=== PATIENT | male | born 1965 | race African-American/Black ===

== ENCOUNTER 2024-06-22 09:53 | Outpatient (REF) | payer MEDICAID, SELFPAY ==
--- NOTE | ~2024-06-22 | XR_ITS ---
EXAMINATION: XR LUMBOSACRAL SPINE CLINICAL INFORMATION: Acute on chronic low back pain. COMPARISON: None available. TECHNIQUE: Three views of the lumbosacral spine. FINDINGS: Mild to moderate disc space narrowing at L5-S1. Very mild thoracolumbar levocurvature. The vertebral bodies and posterior elements otherwise appear unremarkable. The disc spaces appear preserved. No evidence of spondylolysis or spondylolisthesis. The paraspinal soft tissues appear unremarkable. XR/XR lumbar spine 2-3V IMPRESSION: No acute finding. Electronically signed by: Delon Florence MD 06/28/2024 03:11 PM EDT
== END 2024-06-22 09:54 | disposition home or self-care (01) ==
LOC: HO.HHCX 09:53
PROVIDERS: Visit Provider Registered Nurse
DX: M54.50 Low back pain, unspecified (principal); G89.29 Other chronic pain
CPT/HCPCS: 72100

== ENCOUNTER 2024-08-07 09:18 | Outpatient (REF) | payer MEDICAID, SELFPAY ==
[2024-08-07 11:36] LABS: Estimated Average Glucose 103 mg/dL; Hemoglobin A1C 119.8056 umol/L; Hemoglobin A1c % 5.2 % (<6.0); Total Hemoglobin (HGBA1C) 3629.8307 umol/L
[2024-08-07 11:46] LABS: Alanine Aminotransferase 33 U/L (0-40); Albumin Level 3.9 g/dL (3.5-5.0); Alkaline Phosphatase 91 U/L (39-117); Anion Gap 12 (12-20); Aspartate Amino Transferase 41 U/L (5-37); Bilirubin Total 0.4 mg/dL (0.0-1.0); Blood Urea Nitrogen 10 mg/dL (9-16); Calcium 9.3 mg/dL (8.4-10.2); Carbon Dioxide 27 mmol/L (22-29); Chloride 103 mmol/L (96-108); Cholesterol 124 mg/dL (<200); Estimated Glomerular Filt Rate > 60; Glucose Random 72 mg/dL (60-115); HDL Cholesterol 29 mg/dL (>40); LDL Cholesterol Calculated 59 mg/dL (<100); Potassium 4.9 mmol/L (3.3-5.1); Sodium 137 mmol/L (135-145); Total Protein 7.6 g/dL (6.5-8.0); Triglycerides 181 mg/dL (<150)
[2024-08-07 12:09] LABS: HBc Num1 0.12 S/CO (0.00-0.79); HBsAGNum1 0.82 S/CO (0.00-0.99); HIV AB/AG Nonreactive (Nonreactive); HIV Num 1 0.05 S/CO (0.00-0.99); Hepatitis B Core Antibody Nonreactive (Nonreactive); Hepatitis B Surface Antigen Negative (Negative); ~HepC Num1 15.09 S/CO (0.00-0.79); ~Hepatitis C Antibody Reactive (Nonreactive)
[2024-08-11 12:43] LABS: RPR Rapid Plasma Reagin NON-REACTIVE (NON-REACTIVE)
[2024-08-18 12:13] LABS: HCV Log PCR 5.78 Log IU/mL (NOT DETECTED); HepC Viral Load 601000 IU/mL (NOT DETECTED)
== END 2024-08-07 09:19 | disposition home or self-care (01) ==
LOC: HO.HHCL 09:18
PROVIDERS: Visit Provider Registered Nurse
DX: F19.90 Other psychoactive substance use, unspecified, uncomplicated (principal); E66.09 Other obesity due to excess calories; Z68.34 Body mass index [BMI] 34.0-34.9, adult
CPT/HCPCS: 36415; 80053; 80061; 83036; 86592; 86704; 86803; 87340; 87389; 87522

== ENCOUNTER 2024-09-11 12:18 | Outpatient (REF) | payer MEDICAID, SELFPAY ==
[2024-09-11 13:18] LABS: Prothrombin Time 11.1 SEC (10.9-12.4)
[2024-09-11 13:31] LABS: Alanine Aminotransferase 41 U/L (0-40); Albumin Level 3.8 g/dL (3.5-5.0); Alkaline Phosphatase 92 U/L (39-117); Anion Gap 9 (12-20); Aspartate Amino Transferase 50 U/L (5-37); Bilirubin Total 0.3 mg/dL (0.0-1.0); Blood Urea Nitrogen 12 mg/dL (9-16); Calcium 8.6 mg/dL (8.4-10.2); Carbon Dioxide 28 mmol/L (22-29); Chloride 103 mmol/L (96-108); Estimated Glomerular Filt Rate > 60; Glucose Random 93 mg/dL (60-115); Potassium 4.4 mmol/L (3.3-5.1); Sodium 136 mmol/L (135-145); Total Protein 7.4 g/dL (6.5-8.0)
[2024-09-11 13:44] LABS: HBS Num1 79.01 mIU/mL (0-7.99); ~Hepatitis B Surface Antibody REACTIVE (Nonreactive)
[2024-09-18 15:43] LABS: FIB-ALT 29 U/L (9-46); FIB-Alpha-2-Macroglobulin 375 mg/dL (106-279); FIB-Apolipoprotein A1 136 mg/dL (94-176); FIB-GGT 72 U/L (3-85); FIB-Haptoglobin 96 mg/dL (43-212); FIB-Total Bilirubin 0.3 mg/dL (0.2-1.2); Liver Fibrosis Score 0.61; Liver Fibrosis Stage F3; Nec Inflam Act Grade A0-A1; Nec Inflam Act Score 0.21; Reference ID 5216125
== END 2024-09-11 12:19 | disposition home or self-care (01) ==
LOC: HO.HHCL 12:18
PROVIDERS: Visit Provider Registered Nurse
DX: F19.90 Other psychoactive substance use, unspecified, uncomplicated (principal); E66.09 Other obesity due to excess calories; Z68.34 Body mass index [BMI] 34.0-34.9, adult; B18.2 Chronic viral hepatitis C
CPT/HCPCS: 36415; 80053; 81596; 85610; 86706

== ENCOUNTER 2025-01-04 09:59 | Outpatient (REF) | payer MEDICAID, SELFPAY ==
--- NOTE | ~2025-01-04 | US_ITS ---
EXAMINATION: US ABDOMEN COMPLETE WITH LIVER ELASTOGRAPHY HISTORY: Hepatitis C F3 TECHNIQUE: Real-time grayscale ultrasound imaging of the abdomen was performed and images were reviewed. COMPARISON: There are no prior studies for comparison. FINDINGS: Liver: The right lobe of the liver measures 17.2 cm in size. The left lobe of the liver measures 10.8 cm in size. The liver demonstrates increased echotexture, consistent with steatosis. No focal mass or intrahepatic biliary ductal dilatation is identified. There is normal hepatopedal flow in the portal vein. Ultrasound elastography of the liver was performed with 10 separate measurements of the liver parenchyma with the patient in the supine position. Measurements were obtained approximately 2 cm below Kings's capsule and perpendicular to the capsule. Images are of satisfactory quality. The median shear wave velocity is 1.88 m/s. The interquartile range/median (IQR/median) is 0.03. Gallbladder and biliary tree: The gallbladder is unremarkable, without evidence of calculi, wall thickening, or pericholecystic fluid. There is no sonographic Patel sign. The common bile duct is normal in caliber measuring 4 mm. Kidneys: The right kidney measures 10.6 cm in length. The left kidney measures 10.7 cm in length. The kidneys are unremarkable, without evidence of masses, hydronephrosis, or calculi. Pancreas: The pancreas is obscured by bowel gas. Spleen: The spleen is normal in size and contour, measuring 10.3 cm in length. Abdominal aorta and inferior vena cava: The visualized portions of the abdominal aorta and inferior vena cava are normal in caliber. There is no free fluid in the abdomen. US/US abdomen comp w elastography IMPRESSION: Hepatomegaly and hepatic steatosis. The median shear wave velocity in the liver is 1.88 m/s, corresponding to a median liver stiffness of 10.75 kPa. The IQR/median value is 0.03. This is indicative of a quality data set. Findings are indicative of a high elastography value suggestive of compensated advanced chronic liver disease. REFERENCE: Society of Radiologists in Ultrasound Liver Stiffness Thresholds (2019): LIVER STIFFNESS THRESHOLDS: *Shear wave velocity less than 1.3 m/s (Liver Stiffness equal or less than 5 kPa): High probability of being normal. *Shear wave velocity less than 1.7 m/s (Liver Stiffness less than 9 kPa): In the absence of other known clinical signs, rules out compensated advanced chronic liver disease. *Shear wave velocity between 1.7-2.1 m/s (Liver Stiffness 9-13 kPa): Suggestive of compensated advanced chronic liver disease but need further test for confirmation. *Shear wave velocity between 2.1-2.4 m/s (Liver Stiffness 13-17 kPa): Rules in compensated advanced chronic liver disease. *Shear wave velocity greater than 2.4 m/s (Liver Stiffness over 17 kPa): Suggestive of clinically significant portal hypertension. QUALITY OF DATA SET: *IQR/Median value equal or less than 0.15 implies a quality data set. *IQR/Median value over 0.15 implies a poor quality data set. SIGNIFICANT CHANGE FROM PRIOR EXAM: Significant change if liver stiffness measurement is 10% or greater from prior exam. OTHER CONSIDERATIONS: The stage of liver fibrosis may be overestimated in the setting of acute hepatitis, liver inflammation, elevated liver function tests, hepatic vascular congestion, obstructive cholestasis, non-fasting state, and infiltrative diseases such as amyloidosis and lymphoma. In some patients with NAFLD, the liver stiffness thresholds for compensated advanced chronic liver disease may be lower. In causes other than viral hepatitis and NAFLD, liver stiffness thresholds are not well established. Electronically signed by: David Tony MD 01/05/2025 08:11 AM EDT
== END 2025-01-04 10:00 | disposition home or self-care (01) ==
LOC: HO.US 09:59
PROVIDERS: PCP Internal Medicine; Visit Provider Registered Nurse
DX: B18.2 Chronic viral hepatitis C (principal)
CPT/HCPCS: 76700; 76981

== ENCOUNTER → 2025-01-04 10:02 | Outpatient (BNV) | payer MEDICAID, SELFPAY | PROVIDERS: PCP Internal Medicine; Visit Provider Radiology Diagnostic Radiology | DX: B18.2 Chronic viral hepatitis C (principal) | CPT/HCPCS: 76700; 76981 ==

== ENCOUNTER 2025-01-18 10:20 | Outpatient (REF) | payer MEDICAID, SELFPAY ==
[2025-01-22 10:59] LABS: Hepatitis C Genotype 1b
== END 2025-01-18 10:21 | disposition home or self-care (01) ==
LOC: HO.HHCL 10:20
PROVIDERS: Visit Provider Registered Nurse
DX: B18.2 Chronic viral hepatitis C (principal)
CPT/HCPCS: 36415; 87902

== ENCOUNTER 2025-01-21 09:08 | Outpatient (REF) | payer MEDICAID, SELFPAY ==
[2025-01-21 11:16] LABS: Hematocrit 44.1 % (42.0-52.0); Mean Corpuscular Volume 91.1 fL (80.0-98.0); Mean Platelet Volume 11.1 fL (9.4-12.4); Platelet Count 254 X10*3/uL (160-400); Red Blood Count 4.84 X10*6/uL (4.60-5.80); Red Cell Distribution Width 12.6 % (11.0-16.0); White Blood Count 22.4 X10*3/uL (4.8-10.8)
[2025-01-21 12:52] LABS: Atypical Lymph Absolute Manual 0.2 x10*3/uL; Atypical Lymphs Percent Manual 1 % (0-6); Band Neutrophils Percent 1 % (3-5); Eosinophils Absolute Manual 0.2 X10*3/uL (0.0-0.4); Eosinophils Percent Manual 1 % (0-4); Lymphocytes Absolute Manual 17.9 X10*3/uL (1.2-4.9); Lymphocytes Percent Manual 80 % (20-40); Monocytes Absolute Manual 1.6 X10*3/uL (0.1-1.2); Monocytes Percent Manual 7 % (2-11); Neutrophils Absolute Manual 2.5 X10*3/uL (2.0-8.3); Neutrophils Percent Manual 10 % (45-73)
[2025-01-21 12:54] LABS: Acanthocytes 1+ (0-2) /OIF; Giant Platelet PRESENT; Large Platelet PRESENT; Ovalocytes 1+ (5-14) /OIF; Platelet Estimate NORMAL (NORMAL); Platelet Morphology Comment NOTED; RBC Morphology NOTED
[2025-01-21 12:55] LABS: Burr Cells 3+ (>5) /OIF
== END 2025-01-21 09:09 | disposition home or self-care (01) ==
LOC: HO.HHCL 09:08
PROVIDERS: Visit Provider Registered Nurse
DX: B18.2 Chronic viral hepatitis C (principal)
CPT/HCPCS: 36415; 85007; 85025; 85027

== ENCOUNTER 2025-01-26 09:06 | Outpatient (REF) | payer MEDICAID, SELFPAY ==
[2025-01-26 11:32] LABS: Basophils Absolute Auto 0.1 X10*3/uL (0.0-0.2); Basophils Percent Auto 0.6 % (0-2); Eosinophils Absolute Auto 0.1 X10*3/uL (0.0-0.4); Eosinophils Percent Auto 0.4 % (0-4); Hematocrit 45.9 % (42.0-52.0); Hemoglobin 15.6 g/dl (14.0-18.0); Imm Gran Abs Auto 0.04 X10*3/uL (0.00-0.03); Imm Gran Pct Auto 0.2 % (0.0-0.4); Lymphocytes Percent Auto 78.8 % (20-40); MANUAL DIFF FLAG SCAN; Mean Corpuscular Volume 91.1 fL (80.0-98.0); Monocytes Percent Auto 4.5 % (2-11); Neutrophils Absolute Auto 3.4 x10*3/uL (2.0-8.3); Neutrophils Percent Auto 15.5 % (45-73); Platelet Count 275 X10*3/uL (160-400); Red Blood Count 5.04 X10*6/uL (4.60-5.80); Red Cell Distribution Width 12.6 % (11.0-16.0); SCAN SMEAR FLAG 1; White Blood Count 21.7 X10*3/uL (4.8-10.8)
[2025-01-26 11:33] LABS: Lymphocytes Absolute Auto 17.1 X10*3/uL (1.2-4.9)
[2025-01-26 12:05] LABS: SLIDE REVIEW VERIFIED
== END 2025-01-26 09:07 | disposition home or self-care (01) ==
LOC: HO.HHCL 09:06
PROVIDERS: Visit Provider Registered Nurse
DX: D72.828 Other elevated white blood cell count (principal)
CPT/HCPCS: 36415; 85025

== ENCOUNTER 2025-02-02 09:40 | Outpatient (REF) | payer MEDICAID, SELFPAY | END 2025-02-02 09:41 | disposition home or self-care (01) | LOC: HO.HHCL 09:40 | PROVIDERS: Visit Provider Registered Nurse | DX: Z13.89 Encounter for screening for other disorder (principal) ==

== ENCOUNTER 2025-03-26 12:38 | Outpatient (REF) | payer MEDICAID, SELFPAY | END 2025-03-26 12:39 | disposition home or self-care (01) | LOC: HO.HHCL 12:38 | PROVIDERS: Visit Provider Registered Nurse | DX: Z13.89 Encounter for screening for other disorder (principal) ==

== ENCOUNTER 2025-03-26 13:12 | Outpatient (REF) | payer MEDICAID, SELFPAY ==
--- NOTE | ~2025-03-26 | XR_ITS ---
EXAMINATION: XR CHEST 2 VIEWS HISTORY: 59 y.o male with significant smoking hx, chronic cough COMPARISON: There are no prior studies available for comparison. FINDINGS: PA and lateral views of the chest are submitted. There is mild interstitial prominence. No focal airspace opacities are identified. There is no pleural effusion, pneumothorax, or pulmonary vascular congestion. The heart is normal in size. The bones are intact. XR/XR chest 2V IMPRESSION: Mild interstitial prominence. Given the history of smoking, the patient may qualify for low-dose screen chest CT. Electronically signed by: David Tony MD 03/26/2025 02:03 PM EDT
--- OUTSIDE RECORDS SUMMARY | 2025-03-26 13:24 | XMS_ITS ---
Author Organization [employer] Address [address] [facility] 7t [place] [address] Care Team Providers Care Log Brander Name Role Phone Cristina Grubbs HYDRAULIC TECHNICIAN Primary Care Provider [phone] CM Complex Status:Enrolled (Active) Start date:02/01/2025 Enrollment date:02/23/2025 Enrollment reason:ADT Feed Overview PCP Ref- Enmanuel is a 59-year-old male with chronic HCV and substance use disorder. He is followed by the CRS team for HCV treatment but he needs a support making it to his other specialist appointments. Most importantly, I am very concerned about a possible lymphoma due to some abnormal blood work that he has had. He was referred to hematology and would benefit from care management support ensuring he makes it there. He also needs to complete PFTs which were previously ordered and should start lung cancer screening. He was referred to [facility] but says that he has never been contacted. He may need help rescheduling. Case Team Name Relationship Phone Les العلي RN(Responsible Staff) Registered Debora govea [phone] Continued Care and Services Coordination
== END 2025-03-26 13:13 | disposition home or self-care (01) ==
LOC: HO.HHCX 13:12
PROVIDERS: Visit Provider Registered Nurse
DX: R05.3 Chronic cough (principal)
CPT/HCPCS: 71046

== ENCOUNTER → 2025-03-26 13:14 | Outpatient (BNV) | payer MEDICAID, SELFPAY | PROVIDERS: Visit Provider Radiology Diagnostic Radiology | DX: R05.3 Chronic cough (principal) | CPT/HCPCS: 71046 ==

== ENCOUNTER 2025-06-30 15:07 | Outpatient (REF) | payer MEDICAID, SELFPAY ==
--- NOTE | 2025-06-30 15:12 | PFT_ITS ---
Flows: FEV1: 93 % of predicted at 2.80 L FVC: 87 % of predicted at 3.33 L FEV1/FVC: 84 % Bronchodilator response: Not performed Volumes: Patient was not able to comply with instructions for lung volumes and diffusion capacity testing. Impression: Normal spirometry. Patient was not able to comply with instructions for lung volumes or diffusion capacity testing MTDD
--- OUTSIDE RECORDS SUMMARY | 2025-06-30 17:13 | XMS_ITS ---
Author Organization [employer] Address [address] [facility] 7t [place] [address] Care Team Providers Care Funeral Service Licensee Name Role Phone Cristina Grubbs HEALTH SERVICES MANAGER Primary Care Provider [phone] CHW Complex Status:Enrolled (Active) Start date:02/03/2025 Enrollment date:03/02/2025 Enrollment reason:Referred by provider Overview PCP Ref- Enmanuel is a 59-year-old [...] help rescheduling. Case Team Name Relationship Phone Giuliana Lo(Responsible Staff) [phone] Continued Care and Services Coordination
--- OUTSIDE RECORDS SUMMARY | 2025-06-30 17:13 | XMS_ITS ---
Author Organization [employer] Address [address] [facility] 7t [place] [address] Care Team Providers Care Gas Brazer Name Role Phone Cristina Grubbs WIRE WINDER Primary Care Provider [phone] CM Complex Status:Enrolled (Active) Start date:02/01/2025 Enrollment [...] Les العلي RN(Responsible Staff) Registered Debora govea [phone] Continued Care and Services Coordination
--- OUTSIDE RECORDS SUMMARY | 2025-06-30 17:14 | XMS_ITS | Encounter Summary ---
Author Organization [employer] Address [address] [facility] [place] [address] Care Team Providers Care Pediatric Cns Name Role Phone Romie Cristina SOLAR INSTALLATION TECHNICIAN Primary Care Provider [phone] Encounter Details Date Type Department Care Team (Late st Contact Info) Description 04/08/2025 Telephone [facility] MED[facility]INE [address] [place] [address] Ashwin Stout, AditiD Social History Tobacco Use Types Packs/Day Years Used Date Smoking Tobacco: Every Day Cigarettes Smokeless Tobacco: Never Comments:Smokes 1 ppd x 30 y ears Alcohol Use Standard Drinks/Week Comments Never 0 (1 standard drink = 0.6 oz pur e alcohol) Depression Answer Date Recorded Patient Health Questionnaire-9 Score 9 03/29/2025 Patient Health Questionnaire-9 Score 9 03/29/2025 Last PHQ-9: Questionnaire Data Not on file 0 03/29/2025 Housing Stability Answer Date Recorded What is your housing situation today? I do not have housing (Staying with others, in a hotel, in a [place] [facility] [place], living outside on the street, on a beach, in a car, or in a park 03/24/[address] you li ve. Do you have problems with any of the following? None of the above 03/24/2025 Food Insecurity Answer Date Recorded Within the past 12 months, y ou worried that your food would run out before you got money to buy more: Sometimes True 2024 Within the past 12 months,th e food you bought just didn't last and you didn't have enough money to get more: Sometimes True 03/24/2025 Transportation Answer Date Recorded In the past 12 months, has l ack of transportation kept you from medical appts, meetings, work or from getting things needed for daily living? No 01/22/2025 Utilities Answer Date Recorded In the past 12 months, has t he electric, gas, oil or water company threatened to shut off services in your home? No 06/17/2024 Depression Answer Date Recorded Patient Health Questionnaire-2 Score 6 03/29/2025 Internet Access Answer Date Recorded Internet Access Q1 Yes 06/28/2024 Internet Access Q2 Not on file 06/28/2024 Sex and Gender Information Value Date Recorded Sex Assigned at Male 08/27/2022 10:17 AM EDT Legal Sex Male 10:17 AM EDT Gender Identity Male 08/27/2022 10:17 AM EDT Sexual Orientation Straight 08/27/2022 10 :17 AM EDT documented as of this encounter Miscellaneous Notes * Telephone Encounter - Ashwin Stout PharmD - 04/08/2025 1:19 PM EDT Patient picked up last refill of Epclusa on 04/08/2025. Patient Denied BELÉN Adherence was discussed with patient and they reported Patient reported strict adherence to medication, denies missing any doses Gwyn Warner documented in this encounter Plan of Treatment Upcoming Encounters Date Type Department Care Team (Late st Contact Info) Description 07/05/2025 11:15 AM EDT Office Visit [facility] MEDICINE [address] [place] [address] Cristina Grubbs FNP [address] [place] [address] 07/15/2025 10:00 AM EDT Office Visit [facility] ADULT DENTAL [address] [place] [address] Lalo Quintanilla, DMD [address] [place] [address] documented as of this encounter Visit Diagnoses Not on filedocumented in this encounter Additional Health Concerns Assessment Noted Time PHQ-9 Depression Total Score: 9 03/29/20 25 9:29 AM EDT documented as of this encounter Care Teams Pediatric Cns Relationship Specialty Start Date End Date Cristina Grubbs FNP [address] [place] [id number] PCP - General Family Medicine 06/17/24 documented as of this encounter
--- OUTSIDE RECORDS SUMMARY | 2025-06-30 17:14 | XMS_ITS | Encounter Summary ---
Author Organization [employer] Address [address] [facility] [address] [place] [address] Care Team Providers Care Case Advocate Name Role Phone Cristina Grubbs CHARTERED FINANCIAL ANALYST Primary Care Provider Reason for Visit * Reason Comments Med Refill Encounter Details Date Type Department Care Team ([facility] Contact Info) Description 07/21/2024 Refill [facility] [address] [place], [place] [phone] Ashwin Tapia MD [address] [place], [place] [phone] Social History Tobacco Use Types Packs/Day Years Used Date Smoking Tobacco: Every Day Cigarettes Smokeless Tobacco: Never Comments:Smokes 1 ppd x 30 y ears Alcohol Use Standard Drinks/Week Comments Never 0 (1 standard drink = 0.6 oz pur e alcohol) Depression Answer Date Recorded Patient Health Questionnaire-9 Score 0 06/17/2024 Patient Health Questionnaire-9 Score 0 06/17/2024 Last PHQ-9: Questionnaire Data Not on file 0 06/17/2024 Housing Stability Answer Date Recorded What is your housing situation today? I have rachel coles 06/17/[address] you li ve. Do you have problems with any of the following? None of the above 06/17/2024 Food Insecurity Answer Date Recorded Within the past 12 months, y ou worried that your food would run out before you got money to buy more: Never True 06/17/2024 Within the past 12 months,th e food you bought just didn't last and you didn't have enough money to get more: Never True Transportation Answer Date Recorded In the past 12 months, has l ack of transportation kept you from medical appts, meetings, work or from getting things needed for daily living? Yes, it has kept me from medical appointments or getting medications. 06/17/2024 Utilities Answer Date Recorded In the past 12 months, has t he electric, gas, oil or water company threatened to shut off services in your home? No 06/17/2024 Depression Answer Date Recorded Patient Health Questionnaire-2 Score 0 06/17/2024 Internet Access Answer Date Recorded Internet Access Q1 Yes 06/28/2024 Internet Access Q2 Not on file 06/28/2024 Sex and Gender Information Value Date Recorded Sex Assigned at Male 08/27/2022 10:17 AM EDT Legal Sex Male 10:17 AM EDT Gender Identity Male 08/27/2022 10:17 AM EDT Sexual Orientation Straight 08/27/2022 10 :17 AM EDT documented as of this encounter Plan of Treatment Upcoming Encounters Date Type Department Care Team (Late st Contact Info) Description 07/05/2025 11:15 AM EDT Office Visit [facility] [address] [place] [address] Cristina Grubbs FNP [address] [place] [address] 07/15/2025 10:00 AM EDT Office Visit [facility] ADULT DENTAL [address] [place] [address] Lalo Quintanilla, DMD [address] [place] [address] documented as of this encounter Visit Diagnoses Not on filedocumented in this encounter Additional Health Concerns Assessment Noted Time PHQ-9 Depression Total Score: 0 06/17/20 24 2:36 PM EDT documented as of this encounter Care Teams Case Advocate Relationship Specialty Start Date End Date Cristina Grubbs FNP [address] [place] [address] PCP - General Family Medicine 06/17/24 documented as of this encounter
--- OUTSIDE RECORDS SUMMARY | 2025-06-30 17:14 | XMS_ITS | Encounter Summary ---
Author Organization [employer] Address [address] [facility] 7t [place] [address] Care Team Providers Care Film Numberer Name Role Phone Romie [facility] Primary Care Provider [phone] Reason for Visit * Reason Comments Med Refill Encounter Details Date Type Department Care Team ([facility] Contact Info) Description 05/23/2025 Refill [facility] [address] [place], [place] [phone] [facility] [address] [place], [place] [phone] Social History Tobacco Use Types Packs/Day Years [...] with others, in a hotel, in a senior living, living outside on the street, on a [...] Description 07/05/2025 11:15 AM EDT Office Visit [facility] MEDICINE [address] [place] [address] Cristina Grubbs FNP [address] [place] [address] 07/15/2025 10:00 AM EDT Office Visit [facility] ADULT DENTAL [address] [place] [address] Lalo Quintanilla, DMD [address] [place] [address] documented as of this encounter Visit Diagnoses Not on filedocumented in this encounter Additional Health Concerns Assessment Noted Time PHQ-9 Depression Total Score: 9 03/29/20 25 9:29 AM EDT documented as of this encounter Care Teams Film Numberer Relationship Specialty Start Date End Date Cristina Grubbs FNP [address] [place] [address] PCP - General Family Medicine 06/17/24 documented as of this encounter
--- OUTSIDE RECORDS SUMMARY | 2025-06-30 17:14 | XMS_ITS | Encounter Summary ---
Author Organization [employer] Address [address] [facility] 7t [place] [address] Care Team Providers Care Screen Printing Supervisor Name Role Phone Cristina Grubbs [facility] Primary Care Provider [phone] Reason for Visit * Reason Comments Med Refill Encounter Details Date Type Department Care Team (Late st Contact Info) Description 04/11/2024 Refill [facility] [address] [place] [address] Ashwin Tapia MD [address] [place] [address] Social History Tobacco Use Types Packs/Day Years Used Date Smoking Tobacco: Every Day Cigarettes Smokeless Tobacco: Never Comments:Smokes 1 ppd x 30 y ears Alcohol Use Standard Drinks/Week Comments Never 0 (1 standard drink = 0.6 oz pur e alcohol) Sex and Gender Information Value Date Recorded Sex Assigned at Male 08/27/2022 10:17 AM EDT Legal Sex Male 10:17 AM EDT Gender Identity Male 08/27/2022 10:17 AM EDT Sexual Orientation Straight 08/27/2022 10 :17 AM EDT documented as of this encounter Plan of Treatment Upcoming Encounters Date Type Department Care Team (Late st Contact Info) Description 07/05/2025 11:15 AM EDT Office Visit [facility] [address] [place] [address] [facility]Cristina [facility] [address] [place] [address] 07/15/2025 10:00 AM EDT Office Visit [facility] ADULT DENTAL [address] [place] [address] Lalo Quintanilla DMD [address] [place] [address] documented as of this encounter Visit Diagnoses Not on filedocumented in this encounter Care Teams Screen Printing Supervisor Relationship Specialty Start Date End Date Cristina Grubbs FNP [address] [place] [address] PCP - General Family Medicine 06/17/24 documented as of this encounter
--- OUTSIDE RECORDS SUMMARY | 2025-06-30 17:14 | XMS_ITS | Encounter Summary ---
Author Organization [employer] Address [address] [facility] [address] [place] [address] Care Team Providers Care Personal Care Service Provider Name Role Phone Romie Cristina RN ACLS Primary Care Provider [phone] Encounter Details Date Type Department Care Team (Late st Contact Info) Description 02/09/2025 Telephone [facility] MEDICINE [address] [place] [address] Ashwin Stout, AditiD Social History Tobacco Use Types Packs/Day Years Used Date Smoking Tobacco: Every Day Cigarettes Smokeless Tobacco: Never Comments:Smokes 1 ppd x 30 y ears Alcohol Use Standard Drinks/Week Comments Never 0 (1 standard drink = 0.6 oz pur e alcohol) Depression Answer Date Recorded Patient Health Questionnaire-9 Score 8 02/01/2025 Patient Health Questionnaire-9 Score 8 02/01/2025 Last PHQ-9: Questionnaire Data Not on file 0 02/01/2025 Housing Stability Answer Date Recorded What is [...] Answer Date Recorded Patient Health Questionnaire-2 Score 2 02/01/2025 Internet Access Answer Date Recorded Internet Access [...] Telephone Encounter - Ashwin Stout PharmD - 02/09/2025 12:43 PM EDT Patient picked up first refill of Epclusa on 02/09/2025. Possible side effects were explained to the patient and caregiver. Discussed the importance of adherence and storage of the medication. Let patient know this regimen is curative if take correctly. Advised on taking omeprazole 4 hours apart from medication. Gwyn Warner documented in this encounter Plan of Treatment Upcoming Encounters Date Type Department Care Team (Late st Contact Info) Description 07/05/2025 11:15 AM EDT Office Visit [facility] MED[facility] [address] [place] [address] Cristina Grubbs FNP [address] [place] [address] 07/15/2025 10:00 AM EDT Office Visit [facility] ADULT DENTAL [address] [place] [address] Lalo Quintanilla, DMD [address] [place] [address] documented as of this encounter Visit Diagnoses Not on filedocumented in this encounter Additional Health Concerns Assessment Noted Time PHQ-9 Depression Total Score: 8 02/02/20 25 10:31 AM EDT documented as of this encounter Care Teams Personal Care Service Provider Relationship Specialty Start Date End Date Cristina Grubbs FNP [address] [place] [address] PCP - General Family Medicine 06/17/24 documented as of this encounter
--- OUTSIDE RECORDS SUMMARY | 2025-06-30 17:14 | XMS_ITS | Encounter Summary ---
Author Organization [employer] Address [address] [facility] 7t [place] [address] Care Team Providers Care Sales Representative Jewelry Name Role Phone Cristina Grubbs [facility] Primary Care Provider [phone] Reason for Visit * Reason Comments Med Refill Encounter Details Date Type Department Care Team (Late st Contact Info) Description 05/29/2024 Refill [facility] [address] [place], [place] [phone] Ashwin Tapia MD [address] [place] [address] Social History Tobacco Use Types Packs/Day Years [...] Description 07/05/2025 11:15 AM EDT Office Visit [facility] MEDICINE [address] [place] [address] RomieCristina [facility] [address] [place] [address] 07/15/2025 10:00 AM EDT Office Visit [facility] ADULT DENTAL [address] [place] [address] Lalo Quintanilla DMD [address] [place] [address] documented as of this encounter Visit Diagnoses Not on filedocumented in this encounter Care Teams Sales Representative Jewelry Relationship Specialty Start Date End Date Cristina Grubbs FNP [address] [place] [address] PCP - General Family Medicine 06/17/24 documented as of this encounter
--- OUTSIDE RECORDS SUMMARY | 2025-06-30 17:14 | XMS_ITS | Encounter Summary ---
Author Organization [employer] Address [address] [facility] [address]t [place] [address] Care Team Providers Care Crossband Layer Name Role Phone [place] [facility] Primary Care Provider Reason for Visit * Reason Comments Pre-visit Planning SDOH unable to reach LVM Encounter Details Date Type Department Care Team ([facility] Contact Info) Description 06/25/2025 Patient Outreach [facility] [address] [place], [place] [phone] [facility] [address] [place] [address] Pre-visit Planning (SDOH unable to reach LVM) Social History Tobacco Use Types Packs/Day Years [...] with others, in a hotel, in a correction, living outside on the street, on a [...] AM EDT documented as of this encounter Progress Notes * Nikole Ashraf - 06/25/2025 1:43 PM EDT JACQUELINE Blackwell placed outbound call to patient to complete pre-visit planning. No answer at this time. Patient name and were not confirmed. CC left voicemail requesting return call. Direct contactinformation provided. documented in this encounter Plan of Treatment Upcoming Encounters Date Type Department Care Team (Late st Contact Info) Description 07/05/2025 11:15 AM EDT Office Visit [facility] MEDICINE [address] [place] [address] [place], Cristina, JUNIOR ART DIRECTOR [address] [place] [address] 07/15/2025 10:00 AM EDT Office Visit [facility] ADULT DENTAL [address] [place] [address] Lalo Quintanilla, DMD [address] [place] [address] documented as of this encounter Visit Diagnoses Not on filedocumented in this encounter Additional Health Concerns Assessment Noted Time PHQ-9 Depression Total Score: 9 03/29/20 25 9:29 AM EDT documented as of this encounter Care Teams Crossband Layer Relationship Specialty Start Date End Date Cristina Grubbs FNP [address] [place] [address] PCP - General Family Medicine 06/17/24 documented as of this encounter
--- OUTSIDE RECORDS SUMMARY | 2025-06-30 17:14 | XMS_ITS | Clinical Summary ---
Author Organization [employer] Address [address] [facility] 7t [place] [address] Care Team Providers Care Advertising Agent Name Role Phone Cristina Grubbs MUD BOSS Primary Care Provider [phone] Allergies No known active allergies Medications * This document contains information received from the source organization and may not represent a complete record from that organization. methadone (Dolophine) 10 MG/5ML solution Take 135 mg by mouth. Active ibuprofen 400 MG tablet Take 1 tablet (400 mg) by mouth every 6 (six) hours if needed for moderate pain or fever for up to 30 doses. 30 tablet 3 Active Spacer/Aero-Hold ing Chambers (OptiChamber Silvia) misc 1 each every 4 (four) hours if needed (asthma). 1 each 2 3 Active Emollient (CeraVe Moisturizing) cream APPLY TOPICALLY TO THE AFFECTED AREA(S) TWICE DAILY IN THE MORNING AND AT BEDTIME NEEDED FOR DRY SKIN 453 g 2 4 Active Symbicort 160-4.5 MCG/ACT inhaler INHALE 2 PUFFS BY MOUTH TWICE DAILY IN THE MORNING AND AT BEDTIME, DO NOT SWALLOW 10.2 g 3 4 Active QUEtiapine (SEROquel) 50 MG tabletIndication s:Mixed anxiety and depressive disorder Take 3 tablets (150 mg) by mouth at bedtime. 90 tablet 11 5 10/28/19 26 Active triamcinolone (Kenalog) 0.1 % creamIndications :Xerosis of skin MIX WITH cerave AND APPLY TOPICALLY TO AFFECTED AREA(S) AFTER SHOWER DIRECTED 80 g 2 5 Active montelukast (Singulair) 10 MG tablet Take 1 tablet by mouth at bedtime. Active tiotropium (Spiriva HandiHaler) 18 MCG inhalation capsuleIndicatio ns:Chronic obstructive pulmonary disease, unspecified COPD type (CMS/HCC) Place 1 capsule (18 mcg) into inhaler and inhale in the morning. 30 capsule 11 5 02/02/20 26 Active Ventolin HFA 108 (90 Base) MCG/ACT inhaler INHALE 2 PUFFS BY MOUTH EVERY 4 HOURS NEEDED FOR WHEEZING OR SHORTNESS OF BREATH 18 g 3 5 Active omeprazole (PriLOSEC) [address] capsule TAKE 1 CAPSULE BY MOUTH EVERY MORNING BEFORE BREAKFAST DO NOT BREAK, CRUSH, DISSOLVE OR CHEW 90 capsule 3 5 Active Acetaminophen Extra Strength 500 MG tabletIndication s:Chronic obstructive pulmonary disease, unspecified COPD type (CMS/HCC) TAKE 2 TABLETS BY MOUTH EVERY 6 HOURS NEEDED FOR MODERATE PAIN OR FOR FEVER 30 tablet 5 Active Multiple Vitamin (multivitamin) tabletIndication s:Chronic obstructive pulmonary disease, unspecified COPD type (CMS/HCC) Take 1 tablet by mouth Once per day. 90 tablet 3 5 Active lidocaine (Lidoderm) 5 % patchIndications :Chronic bilateral low back pain, unspecified whether sciatica present Apply 1 patch topically Once per day. Remove & discard patch within 12 hours 30 patch 11 4 06/17/20 25 Active Problems Problem Noted Date Diagnosed Date Chalazion of right lower eyelid 11/20/2024 Adjustment disorder with mixed anxiety and depre ssed mood 11/02/2024 Major depression with psychotic features 025 Assessment & Plan (11/03/2024 11:58 AM EST): During IBH Consult Enmanuel presenting with depressed mood, Tearful, crying spells , hopelessness, irritable mood, loss of interests/pleasure , sense of isolation/loneliness , isolating, changes in sleep difficulty falling asleep and difficulty staying asleep , psychomotor retardation, fatigue/loss of energy, worthlessness, inappropriate/excessive guilt , difficulty concentrating, indecisiveness and Decreased need for sleep and Other: visual an auditory hallucinations (name calling/no commanding voice); for a period of 18+ mo, for most or all symptoms in the context of chronic mental health untreated. Enmanuel has been experiencing symptoms described above for a while now. Cultural barriers and traditional stereotypes have been a barriers to seek out for therapy as the pt has strong heritage. Pt is currently doing the methadone program with [facility] in [place]. Reports having positive support from his family. clinician engaged patient with active/reflective listening. Reviewed and assessed for risk, current stressors and protective factors using open-ended questions. Pt requested be connected with services in the [facility]. Recurrent major depressive disorder, in partial remission 06/17/2024 Tobacco dependence 07/23/2023 Chronic bilateral low back pain without sciatica 07/23/2023 Opioid dependence, uncomplicated 07/23/2023 Rash 07/23/2023 Mild persistent asthma without complication 06/29 Assessment & Plan (11/02/2024 11:49 AM EST): Encouraged smoking cessation, discussed treatment methods, pt not interested in quitting at this time. Will re fax referrals for PFTs as well as LDLCT F/u in 3 months to review test results and reassess asthma tx. Cocaine abuse in remission 07/23/2023 H/O: depression 07/23/2023 H/O anxiety disorder 07/23/2023 Generalized anxiety disorder 08/05/2017 Mixed anxiety and depressive disorder 08/19/2012 Assessment & Plan (11/02/2024 12:05 PM EST): Will increase seroquel to 150 mg nightly in office consult completed today to establish therapy and psychopharm services, d/t time constraints visit unable to be completed, however resources were given to the patient and patient plans to f/u with [facility] to establish care. Normocytic anemia 08/19/2012 Smoker 08/19/2012 Assessment & Plan (11/02/2024 11:50 AM EST): Encouraged to quit, not interested at this time Asthma 06/19/2012 Hepatitis C 06/19/2012 Assessment & Plan (11/02/2024 11:51 AM EST): Reminded pt to complete liver ultrasound scheduled this month Pt plans to schedule f/u with Hep C clinic once ultrasound is completed to go over results and discuss tx Mantoux: positive 06/19/2012 Polysubstance abuse 06/19/2012 Resolved Problems Problem Noted Date Diagnosed Date Resolved Date Hordeolum externum of right lower eyelid 07/24/2024 11/20/2024 Assessment & Plan (07/24/2024 7:44 PM EDT): Anticipatory guidance reviewed, apply warm compresses, if does not resolve in 1- 2 weeks will refer to opthomalogy Reviewed s/s of cellulitis Recurrent major depressive disorder 06/17/2024 06/17/2024 Encounters Date Type Department Care Team Description 06/25/2025 Patient Outreach [facility] [address] [place], [place] [phone] Cristina Grubbs FNP Pre-visit Planning (SDOH unable to reach [facility]) 06/18/2025 Patient Outreach [facility] [address] [place] [address] Cristina Grubbs FNP Care Coordination (C3 CM-W Giuliana Lo telephone call outreach) 06/17/2025 Patient Outreach [address] [address] Cristina Grubbs FNP Care Management (C3- F/U call # 2 (3rd attempt)/LV) 05/23/2025 Refill [facility] [address] [place], [place] [phone] Cristina Grubbs FNP 05/20/2025 Patient Outreach [address] [address] Cristina Grubbs FNP Care Management (C3- follow up call # 2) 05/19/[address] [address] Sindy Segura RN 05/14/[address] [address] Cristina Grubbs FNP telephone call 05/12/2025 Patient Outreach [address] [address] Cristina Grubbs FNP Care Coordination (C3 CM-CHW Giuliana Lo telephone call outreach) 04/28/[address] [phone] [facility] telephone call 04/22/2025 Patient Outreach [address] [phone] [facility] Care Coordination 04/22/2025 Patient Outreach [address] [phone] [facility] Care Management (C3CM- Follow up call # 2/LVM) 04/08/[address] [phone] Ashwin Stout, PharmD 04/05/2025 Patient Outreach [address] [phone] [facility] Care Coordination from Last 3 Months Immunizations Immunization Administration Dates Next Due Hep A, Adult 06/08/2019,11/17/2004,01/01/2004 Hep B, adult 08/08/2005,06/14/2005,01/29/2005 Influenza injectable quadriv alent IIV4 with preservative 08/05/2017 Influenza, seasonal, injecta ble, preservative free 08/03/2024 Pneumococcal Conjugate PCV 20 08/03/2024 Pneumococcal Polysaccharide PPSV23 01/22/2014 Td (adult), 5 Lf tetanus tox oid, preservative free, adsorbed 03/11/2008 Tdap 08/05/2017 Zoster, Recombinant 04/05/2025,02/01/2025 Family History Medical History Relation Name Comments Diabetes type II Sister Hypertension Sister Relation Name Status Comments Sister Social History Tobacco Use Types Packs/Day Years Used Date Smoking Tobacco: Every Day Cigarettes Smokeless Tobacco: Never Tobacco Cessation:Ready to Q uit: Not Asked; Counseling Given: Not Answered Comments:Smokes 1 ppd x 30 years Alcohol Use Standard Drinks/Week Comments Never 0 [...] with others, in a hotel, in a skilled nursing, living outside on the street, on a [...] Orientation Straight 08/27/2022 10 :17 AM EDT Last Filed Vital Signs Vital Sign Reading Time Taken Comments Blood Pressure 112/82 03/29/2025 9:23 AM EDT Pulse 60 03/29/2025 9:23 AM EDT Temperature 36.8 C (98.3 F) 03/29/2025 9:23 AM EDT Respiratory Rate 20 03/29/2025 9:23 AM EDT Oxygen Saturation 98% 02/01/2025 10:30 AM EDT Inhaled Oxygen Concentration - - Weight 83.5 kg (184 lb) 03/29/2025 9:23 AM EDT Height 162.6 cm (5' 4 ) 03/29/2025 9:23 AM EDT Body Mass Index 31.58 03/29/2025 9:23 AM EDT Plan of Treatment Upcoming Encounters Date Type Department Care Team (Late st Contact Info) Description 07/05/2025 11:15 AM EDT Office Visit [facility] MEDICINE [address] [place], [place] [phone] Cristina Grubbs MUD BOSS [address] [place] [address] 07/15/2025 10:00 AM EDT Office Visit [facility] ADULT DENTAL [address] [place], [place] [phone] Lalo Quintanilla, DMD [address] [place], [place] [phone] Health Maintenance Due Date Last Done Comments CT Colonography 1967 Colonoscopy 1967 Colorectal Cancer Screening 1967 Dental Prophylaxis 1967 Dental X-Ray: Bitewings 1967 FIT DNA/Cologuard 1967 FIT 1967 FOBT 1967 Sigmoidoscopy 1967 COVID-19 Vaccine (3 - 2023-2 5 season) 2024 09/01/2021, 02/03/2021 Dental Oral Exam 11/29/2024 05/28/2024 Influenza Vaccine (#1) 2025 , 08/05/2017 Depression Monitoring 09/28/2025 03/29/2025 , 03/29/2025 SDOH Screening 03/24/2026 03/24/2025 Alcohol/Substance Use Screening 03/29/2026 03/29/2025 Disability Screening 03/29/2026 03/29/2025 Tobacco Screening 04/02/2026 04/02/2025 Dental X-Ray: Full Mouth 05/29/2027 05/28/2024 DTaP/Tdap/Td Vaccines (2 - T d or Tdap) 08/05/2027 08/05/2017, 03/11/2008 Lipid Panel 08/07/2029 08/07/2024 RSV Patients and Patients Aged 60 years or older (1 - 1-dose 75+ series) 2042 Hepatitis B Vaccines Completed 08/08/2005, 06/14/2005, 01/29/2005 Hepatitis A Vaccines Completed 06/08/2019, 11/17/2004, 01/01/2004 Pneumococcal Vaccine: 50+ Years Completed 08/03/2024, 01/22/2014 HIV Screening Completed 08/07/2024 Zoster Vaccines Completed 04/05/2025, 02/01/2025 HIB Vaccines Aged Out No longer eligi ble based on patient's age to complete this topic HPV Vaccines Aged Out No longer eligi ble based on patient's age to complete this topic IPV Vaccines Aged Out No longer eligi ble based on patient's age to complete this topic Meningococcal B Vaccine Aged Out No l onger eligible based on patient's age to complete this topic Meningococcal Vaccine Aged Out No tacho josh eligible based on patient's age to complete this topic RSV under 20 months Aged Out No longe r eligible based on patient's age to complete this topic Rotavirus Vaccines Aged Out No longer eligible based on patient's age to complete this topic Procedures Procedure Name Priority Date/Time Associated Diagnosis Comments HIV 1/2 ANTIGEN/ANTIBODY, FOURTH GENERATION W/RFL Routine 08/07/2024 9:20 AM EDT Substance use LIPID PANEL, STANDARD Routine 08/07/2024 9:20 AM EDT Class 1 obesity due to excess calories with serious comorbidity and body mass index (BMI) of 34.0 to 34.9 in adult PANORAMIC RADIOGRAPHIC IMAGE Routine 05/28/2024 10:30 AM EDT PERIODIC ORAL EVALUATION - ESTABLISHED PATIENT Routine 05/28/2024 10:30 AM EDT from Last 3 Months or Most Recently Relevant to Health Maintenance Results * HIV-1/2 Antigen and Antibodies, Fourth Generation, with Reflexes (08/07/2024 9:20 AM EDT) HIV AB/AG Nonreactive Nonreactive [facility] Comment:HIV-1 p24 Ag and/or HIV-1/HIV-2 Ab not detected.A test result that is nonreactive does not exclude thepossibility of exposure to or infection with HIV-1 and/orHIV-2. Nonreactive results in this assay for individualswith prior exposure to HIV-1 and/or HIV-2 may be due toantigen and antibody levels that are below the limit ofdetection of this assay.The [employer] HIV Ag/Ab Combo assay result andsupplemental assay results should be interpreted inconjunction with the patient's clinical presentation,history and other laboratory results. If the results areinconsistent with clinical evidence, additional testing issuggested to confirm the result. Blood Venous blood specimen / Unknown 08/07/2024 9:20 AM EDT 08/07/2024 11:17 AM EDT [facility] LAB BLOOD ORDERABLES Final Re sult [facility] [address] [place] [phone] * (ABNORMAL) Lipid Panel, Standard (08/07/2024 9:20 AM EDT) Triglycerides 181(H) <150 mg/dL [facility] Comment:Desirable Triglyceri de: less than 150 mg/dLBorderline High Triglyceride 150-199 mg/dLHigh Triglyceride: 200-499 mg/dLVery High Triglyceride: greater than or equal to 5OO mg/dL Cholesterol 124 <200 mg/dL [facility] Comment:Desirable Cholestero l: less than 200 mg/dLBorderline High Cholesterol: 200-239 mg/dLHigh Cholesterol: greater than 239 mg/dL LDL Cholesterol Calculated 59 <100 mg/dL [facility] Comment:Desirable LDL: less than 100 mg/dLNear Optimal/Above Optimal LDL: 110- 129 mg/dLBorderline High LDL: 130-159 mg/dLHigh LDL: 160-189 mg/dLVery High LDL: greater than or equal to 190 mg/dL HDL Cholesterol 29(L) >40 mg/dL [facility] Comment:Desirable HDL: great er than 40 mg/dL Note: This HDL assay may give artificially low results in patients with liver disease. Blood Venous blood specimen / Unknown 08/07/2024 9:20 AM EDT 08/07/2024 11:17 AM EDT [facility] LAB BLOOD ORDERABLES Final Re sult [facility] [address] [place] [phone] [phone] from Last 3 Months or Most Recently Relevant to Health Maintenance Insurance [place] [facility] MEDICAID STAND ADULT Care Teams Advertising Agent Relationship Specialty Start Date End Date Cristina Grubbs FNP [address] [place] [phone] PCP - General Family Medicine 06/17/24
== END 2025-06-30 15:08 | disposition home or self-care (01) ==
LOC: HO.RESP 15:07
PROVIDERS: PCP Registered Nurse; Visit Provider Registered Nurse
DX: J44.9 Chronic obstructive pulmonary disease, unspecified (principal); F17.200 Nicotine dependence, unspecified, uncomplicated; R05.3 Chronic cough
CPT/HCPCS: 94010

== ENCOUNTER → 2025-06-30 15:12 | Outpatient (BNV) | payer MEDICAID, SELFPAY | PROVIDERS: PCP Registered Nurse; Visit Provider Internal Medicine Pulmonary Disease | DX: F17.200 Nicotine dependence, unspecified, uncomplicated (principal); Z91.198 Patient's noncompliance with other medical treatment and regimen for other reason | CPT/HCPCS: 94060 ==

== ENCOUNTER 2025-07-09 12:12 | Outpatient (REF) | payer MEDICAID, SELFPAY ==
[2025-07-09 13:47] LABS: Hematocrit 42.9 % (42.0-52.0); Hemoglobin 14.8 g/dl (14.0-18.0); Imm Gran Abs Auto 0.03 X10*3/uL (0.00-0.03); Imm Gran Pct Auto 0.2 % (0.0-0.4); MANUAL DIFF FLAG SCAN; Mean Corpuscular HGB Conc 34.5 g/dl (31.0-36.0); Mean Corpuscular Hemoglobin 31.4 pg (27.0-33.0); Mean Corpuscular Volume 90.9 fL (80.0-98.0); NRBC Abs Auto 0.000 X10*3/uL (0.0-0.012); NRBC Pct Auto 0.0 /100WBC (0.0-0.2); Platelet Count 250 X10*3/uL (160-400); Red Blood Count 4.72 X10*6/uL (4.60-5.80); SCAN SMEAR FLAG 1; White Blood Count 16.8 X10*3/uL (4.8-10.8)
[2025-07-09 13:48] LABS: Lymphocytes Absolute Auto 12.9 X10*3/uL (1.2-4.9)
[2025-07-09 14:05] LABS: Alanine Aminotransferase 14 U/L (0-40); Albumin Level 4.3 g/dL (3.5-5.0); Alkaline Phosphatase 77 U/L (39-117); Anion Gap 13 (12-20); Aspartate Amino Transferase 27 U/L (5-37); Blood Urea Nitrogen 23 mg/dL (9-16); Calcium 9.4 mg/dL (8.4-10.2); Carbon Dioxide 26 mmol/L (22-29); Chloride 103 mmol/L (96-108); Estimated Glomerular Filt Rate > 60; Potassium 4.1 mmol/L (3.3-5.1); Sodium 138 mmol/L (135-145); Total Protein 7.6 g/dL (6.5-8.0)
[2025-07-11 15:23] LABS: HCV Log PCR <1.18 NOT DETECTED Log IU/mL (NOT DETECTED); HepC Viral Load <15 NOT DETECTED IU/mL (NOT DETECTED)
== END 2025-07-09 12:13 | disposition home or self-care (01) ==
LOC: HO.HHCL 12:12
PROVIDERS: PCP Registered Nurse; Visit Provider Registered Nurse
DX: D72.820 Lymphocytosis (symptomatic) (principal); B17.10 Acute hepatitis C without hepatic coma
CPT/HCPCS: 80053; 83615; 85025; 87522

== ENCOUNTER → 2025-08-02 14:20 | Outpatient (BNV) | payer MEDICAID, SELFPAY | PROVIDERS: PCP Registered Nurse; Referring Provider Registered Nurse; Visit Provider Internal Medicine | DX: D72.820 Lymphocytosis (symptomatic) (principal) | CPT/HCPCS: 99204 ==

== ENCOUNTER 2025-09-03 06:44 | Outpatient (REF) | payer MEDICAID, SELFPAY ==
--- NOTE | ~2025-09-03 | CT_ITS ---
EXAMINATION: CT CHEST WITHOUT IV CONTRAST INDICATION: shortness of breath, unintentional weight loss, hx of smoker COMPARISON: There are no prior studies available for comparison. TECHNIQUE: Helical CT scan of the chest was performed without intravenous contrast. Coronal and sagittal reformatted images were generated and reviewed. This CT exam was performed with one or more of the following dose reduction techniques: automated exposure control, adjustment of the mA and/or kV according to patient size, use of iterative reconstruction technique. DLP: 130 mGy-cm CHEST: THYROID: The thyroid is unremarkable. LUNGS: Increased peripheral reticular markings and groundglass attenuation suggestive of interstitial lung disease. Mild paraseptal emphysema. Central airways are clear. There are bilateral pulmonary nodules. 4 mm right peripheral or subpleural upper lobe nodule axial image 27, 5 mm peripheral or subpleural right upper lobe nodule adjacent to the anterior minor fissure axial image 52, 4 mm peripheral or subpleural right middle lobe nodule axial image 69, 3 mm left upper lobe nodule axial image 27, 3 mm peripheral or subpleural left upper lobe nodule axial image 50, 3 mm peripheral or subpleural left lower lobe nodule adjacent to the major fissure axial image 54, 4 mm peripheral or subpleural left lower lobe nodule adjacent to the fissure axial image 102 series 7 7 mm peripheral or subpleural left lower lobe nodule axial image 108, 4 mm peripheral or subpleural left lower lobe nodule axial image 119 and 3 mm peripheral or subpleural calcified left lower lobe nodule axial image 119 series 4. MEDIASTINUM: There are small mediastinal lymph nodes. No enlarged lymph nodes. HUONG: Evaluation of the hilar regions is limited by lack of intravenous contrast material. CARDIOVASCULATURE: The heart is normal in size. There is no pericardial effusion. The thoracic aorta is normal in caliber. DEGREE OF CORONARY CALCIFICATION: mild PLEURA: There is no pleural effusion. No pneumothorax. MAIN AIRWAYS: The mainstem bronchi and proximal branches are patent. AXILLA: Small bilateral axillary lymph nodes. No chest wall mass or enlarged axillary lymph nodes. BONES AND SOFT TISSUES: Unremarkable UPPER ABDOMEN: The visualized portions of the liver, spleen, and adrenals have an unremarkable unenhanced appearance. CT/CT chest wo IV con IMPRESSION: Mild peripheral interstitial lung disease and paraseptal emphysema. This may represent combined emphysema and interstitial lung disease/fibrosis related to smoking. Small pulmonary nodules, largest measuring 7 mm. Consider enrollment in lung cancer screening program if patient meets eligibility. Mild coronary artery calcification. Fleischner Criteria for pulmonary nodule follow-up SOLID NODULES: Low risk patient: <6mm: no follow-up 6-8mm: 6 month follow-up CT >8mm: PET/Biopsy/ 3 month follow-up CT High risk patient: <6mm: 12 month follow-up CT 6-8mm: 6 month follow-up CT >8mm: PET/Biopsy/ 3 month follow-up CT SUB-SOLID/GROUNDGLASS NODULES: All patients: > or = 6mm: 6 month follow-up CT *Please note that in patients in the following categories, the Fleischner criteria do not apply: Immunocompromised, lung cancer screening population, age below 35, and patients with known malignancy Electronically signed by: Lucinda Abebe MD 09/03/2025 08:24 AM VINI
--- OUTSIDE RECORDS SUMMARY | 2025-09-03 06:46 | XMS_ITS | Encounter Summary ---
Author Organization [employer] Address [address] [facility] 7t [place] [address] Care Team Providers Care Yard Cleaner Name Role Phone Cristina Grubbs [facility] Primary Care Provider [phone] Reason for Visit * Reason Comments Med Refill Encounter Details Date Type Department Care Team ([facility] st Contact Info) Description 04/11/2024 Refill [facility] [address] [place] [phone] Ashwin Tapia MD [address] [place] [address] Social History Tobacco Use Types Packs/Day Years [...] as of this encounter Plan of Treatment Not on file documented as of this encounter Visit Diagnoses Not on filedocumented in this encounter Care Teams Yard Cleaner Relationship Specialty Start Date End Date Cristina Grubbs FNP [address] [place] [phone] PCP - General Family Medicine 06/17/24 documented as of this encounter
--- OUTSIDE RECORDS SUMMARY | 2025-09-03 06:46 | XMS_ITS | Encounter Summary ---
Author Organization [employer] Address [address] [facility] [address]t [place] [address] Care Team Providers Care Processing Inspector Name Role Phone Cristina Grubbs [facility] Primary Care Provider [phone] Reason for Visit * Reason Comments Med Refill Encounter Details Date Type Department Care Team ([facility] st Contact Info) Description 05/29/2024 Refill [facility] [address] [place] [address] [phone] Ashwin Tapia MD [address] [place] [address] Social History Tobacco Use Types Packs/Day Years [...] on filedocumented in this encounter Care Teams Processing Inspector Relationship Specialty Start Date End Date Cristina Grubbs FNP [address] [place] [address] PCP - General Family Medicine 06/17/24 documented as of this encounter
--- OUTSIDE RECORDS SUMMARY | 2025-09-03 06:46 | XMS_ITS | Encounter Summary ---
Author Organization [email or web address] Address [address] [facility] [address] [place] [address] Care Team Providers Care Clay Transporter Name Role Phone Cristina Grubbs PRINCIPAL EMBEDDED SOFTWARE ENGINEER Primary Care Provider Reason for Visit * Reason Comments Med Refill Encounter Details Date Type Department Care Team ([facility] Contact Info) Description 07/21/2024 Refill [facility] [address] [place], [place] [phone] Ashwin Tapia MD [address] [place], [place] [phone] Social History Tobacco Use Types Packs/Day Years [...] documented as of this encounter Care Teams Clay Transporter Relationship Specialty Start Date End Date Cristina Grubbs FNP [address] [place] [address] PCP - General Family Medicine 06/17/24 documented as of this encounter
--- OUTSIDE RECORDS SUMMARY | 2025-09-03 06:47 | XMS_ITS | Encounter Summary ---
Author Organization [employer] Address [address] [facility] [address] [place] [address] Care Team Providers Care It Communications Manager Name Role Phone Romie Cristina SUR[employer]Y METHODOLOGIST Primary Care Provider [phone] Encounter Details Date Type Department Care Team (Late st Contact Info) Description 04/08/2025 Telephone [facility] MED[facility] [address] [place] [address] Ashwin Stout, AditiD Social History [...] documented in this encounter Plan of Treatment Not on file documented as of this encounter Visit Diagnoses Not on filedocumented in this encounter Additional Health Concerns Assessment Noted Time PHQ-9 Depression Total Score: 9 03/29/20 25 9:29 AM EDT documented as of this encounter Care Teams It Communications Manager Relationship Specialty Start Date End Date Cristina Grubbs FNP [address] [place] [phone] PCP - General Family Medicine 06/17/24 documented as of this encounter
--- OUTSIDE RECORDS SUMMARY | 2025-09-03 06:47 | XMS_ITS | Clinical Summary ---
Author Organization [employer] Address [address] [facility] 7t [place] [address] Care Team Providers Care Aluminum Can Collector Name Role Phone Cristina Grubbs TRAVEL REGISTERED NURSE ICU Primary Care Provider [phone] Allergies No known active allergies Medications * [...] 90 tablet 11 5 10/28/19 26 Active montelukast (Singulair) 10 MG tablet Take 1 tablet by mouth at bedtime. Active tiotropium (Spiriva HandiHaler) 18 MCG inhalation capsuleIndicatio ns:Chronic obstructive pulmonary disease, unspecified COPD type (CMS/HCC) ([facility]) Place 1 capsule (18 mcg) into inhaler [...] obstructive pulmonary disease, unspecified COPD type (CMS/HCC) ([facility]) TAKE 2 TABLETS BY MOUTH EVERY 6 HOURS NEEDED FOR MODERATE PAIN OR FOR FEVER 30 tablet 5 Active Multiple Vitamin (multivitamin) tabletIndication s:Chronic obstructive pulmonary disease, unspecified COPD type (CMS/HCC) ([facility]) Take 1 tablet by mouth Once per day. 90 tablet 3 5 Active triamcinolone (Kenalog) 0.1 % creamIndications :Xerosis of skin MIX WITH cerave AND APPLY TOPICALLY AFTER THE SHOWER 80 g 2 5 Active Active Problems Problem Noted Date Diagnosed Date Chalazion of right lower eyelid 11/20/2024 Adjustment disorder with mixed anxiety and depre ssed mood 11/02/2024 Major depression with psychotic features (CMS/HC C) 11/02/2024 Assessment & Plan (11/03/2024 11:58 AM EST): [...] is currently doing the methadone program with N in [place]. Reports having positive support from his family. clinician engaged patient with active/reflective listening. Reviewed and assessed for risk, current stressors and protective factors using open-ended questions. Pt requested be connected with services in the [facility]. Recurrent major depressive disorder, in partial remission 06/17/2024 Tobacco dependence 07/23/2023 Chronic bilateral low back pain without sciatica 07/23/2023 Opioid dependence, uncomplicated (CMS/HCC) 07/23 Rash 07/23/2023 Mild persistent asthma without complication 06/29 Assessment & Plan (11/02/2024 11:49 AM EST): Encouraged smoking cessation, discussed treatment methods, pt not interested in quitting at this time. Will re fax referrals for PFTs as well as LDLCT F/u in 3 months to review test results and reassess asthma tx. Cocaine abuse in remission (CMS/HCC) 07/23/2023 H/O: depression 07/23/2023 H/O anxiety disorder [...] patient and patient plans to f/u with [facility] to establish care. Normocytic anemia 08/19/2012 [...] Encounters Date Type Department Care Team Description 08/06/2025 10:00 AM EDT Office Visit [facility] [address] [place] [address] Lalo Quintanilla, DIPAK 08/04/[address] [address] Cristina Grubbs FNP No Show 08/03/[address] [address] Cristina Grubbs FNP chart prep 07/18/[address] [address] Cristina Grubbs FNP Xerosis of skin 07/16/2025 Patient Outreach [address] [address] Cristina Grubbs FNP Care Coordination (C3 CM-W Giuliana Lo telephone call outreach) 07/15/2025 10:00 AM EDT Office Visit [facility] [address] [place] [address] Lalo Quintanilla, DIPAK 07/15/2025 Patient Outreach [address] [address] Cristina Grubbs FNP Care Management (C3CM- follow up call/LVM) 07/14/2025 Orders Only [facility] [address] [place] [address] Cristina Grubbs FNP Lymphocytosis (Primary Dx) 07/12/2025 Results Follow-Up [facility] [address] [place] [address] Cristina Grubbs FNP Slide Review 07/09/2025 Orders Only [address] [address] Cristina Grubbs FNP 07/08/[address] [address] Cristina Grubbs FNP Care Coordination 07/05/2025 11:15 AM EDT Office Visit [address] [address] Cristina Grubbs FNP Lymphocytosis (Primary Dx); Acute hepatitis C virus infection without hepatic coma; Chronic obstructive pulmonary disease, unspecified COPD type (CMS/HCC); Shortness of breath; Unintentional weight loss 07/05/2025 Travel 07/02/[address] [address] Cristina Grubbs FNP Chart Prep 06/25/2025 Patient Outreach [facility] [address] [place], [place] [phone] Cristina Grubbs FNP Pre-visit Planning (SDOH unable to reach LVM) 06/18/2025 Patient Outreach [address] [address] Cristina Grubbs FNP Care Coordination (C3 CM-W Giuliana Lo telephone call outreach) 06/17/2025 Patient Outreach [address] [address] Cristina Grubbs FNP Care Management (C3CM- F/U call # 2 (3rd attempt)/[facility]) from Last 3 Months Immunizations Immunization Administration [...] Answer Date Recorded Patient Health Questionnaire-9 Score 10 07/05/2025 Patient Health Questionnaire-9 Score 10 07/05/2025 Last PHQ-9: Questionnaire Data Not on file 0 07/05/2025 Housing Stability Answer Date Recorded What is your housing situation today? I do not have housing (Staying with others, in a hotel, in a mcc, living outside on the street, on a [...] Date Recorded Patient Health Questionnaire-2 Score 2 07/05/2025 Internet Access Answer Date Recorded Internet Access [...] Sign Reading Time Taken Comments Blood Pressure 122/80 07/15/2025 10:07 AM EDT Pulse 70 07/15/2025 10:07 AM EDT Temperature 37.2 C (98.9 F) 07/05/2025 11:17 AM EDT Respiratory Rate 20 07/05/2025 11:17 AM EDT Oxygen Saturation 98% 02/01/2025 10:30 AM EDT Inhaled Oxygen Concentration - - Weight 71.7 kg (158 lb) 07/05/2025 11:17 AM EDT Height 162.6 cm (5' 4 ) 07/05/2025 11:17 AM EDT Body Mass Index 27.12 07/05/2025 11:17 AM EDT Plan of Treatment Health Maintenance Due Date Last Done Comments CT Colonography 1967 Colonoscopy 1967 Colorectal Cancer Screening 1967 Dental Prophylaxis 1967 Dental X-Ray: Bitewings 1967 FIT DNA/Cologuard 1967 FIT 1967 FOBT 1967 Sigmoidoscopy 1967 Dental Oral Exam 11/29/2024 05/28/2024 COVID-19 Vaccine (3 2024-2 6 season) 2025 09/01/2021, 02/03/2021 Influenza Vaccine (#1) 2025 , 08/05/2017 Depression Monitoring 01/02/2026 07/05/2025 , 07/05/2025 SDOH Screening 03/24/2026 03/24/2025 Alcohol/Substance Use Screening 03/29/2026 03/29/2025 Disability Screening 03/29/2026 03/29/2025 Tobacco Screening 08/06/2026 08/06/2025 Dental X-Ray: Full Mouth 05/29/2027 05/28/2024 DTaP/Tdap/Td [...] Procedure Name Priority Date/Time Associated Diagnosis Comments CASE PRESENTATION, DETAILED AND EXTENSIVE TREATMENT PLANNING Routine 08/06/2025 10:00 AM EDT RELINE COMPLETE MANDIBULAR DENTURE (LABORATORY) Routine 08/06/2025 10:00 AM EDT RELINE COMPLETE MAXILLARY DENTURE (LABORATORY) Routine 08/06/2025 10:00 AM EDT DENTURE IMPRESSION Routine 07/15/2025 10 :00 AM EDT SLIDE REVIEW Routine 07/09/2025 12:15 PM EDT PATHOLOGIST REVIEW - CBC Routine 07/09/2025 12:15 PM EDT Lymphocytosis COMPREHENSIVE METABOLIC PANEL Routine 07/09/2025 12:15 PM EDT Lymphocytosis LD Routine 07/09/2025 12:15 PM EDT Lymphocytosis HEPATITIS C VIRAL RNA, QUANTITATIVE, REAL-TIME PCR Routine 07/09/2025 12:15 PM EDT Acute hepatitis C virus infection without hepatic coma CBC WITH AUTO DIFFERENTIAL Routine 07/09/2025 12:15 PM EDT Lymphocytosis HIV 1/2 ANTIGEN/ANTIBODY, FOURTH GENERATION W/RFL Routine [...] Recently Relevant to Health Maintenance Results * Slide Review (07/09/2025 12:15 PM EDT) Slide Review VERIFIED [facility] 07/09/2025 12:1 5 PM EDT 07/09/2025 1:38 PM EDT [facility] LAB BLOOD ORDERABLES Final Re sult Performing Organization Address [facility] Co de Phone Number [facility] [address] [place] [phone] * Pathologist Review Of Peripheral Smear (07/09/2025 12:15 PM EDT) Pathologist Review - CBC SEE NOTE [facility] Comment:Leukocytosis with ab solute lymphocytosis, with smudge formsand many variants. A lymphoproliferative disorder cannot beexcluded. Submission of a fresh peripheral blood sample forflow cytometry is recommended. Consider Hematology consult.Karis Alfonso MD Blood Venous blood specimen / Unknown 07/09/2025 12:15 PM EDT 07/09/2025 1:38 PM EDT [facility] LAB BLOOD ORDERABLES Final Re sult Performing Organization Address City/[facility]/ZIP Co de Phone Number [facility] [address] [place] [phone] * Hepatitis C Viral RNA, Quantitative, Real-Time PCR (07/09/2025 12:15 PM EDT) Pathologist [facility] Hepatitis C Viral Load <15 NOT DETECTED NOT DETECTED IU/mL [facility] HCV Log PCR <1.18 NOT DETECTED NOT DETECTED Log IU/mL [facility] Comment:For additional infor chary, please refer [email or web address].Ultromex/faq/[email or web address](This link is being provided for informational/educational purposes only.)THIS TEST WAS PERFORMED AT:[facility] [place] [phone] UNGER MD Blood Venous blood specimen / Unknown 07/09/2025 12:15 PM EDT 07/09/2025 1:35 PM EDT [facility] LAB BLOOD ORDERABLES Final Re sult [facility] [address] [place] [address] [phone] * (ABNORMAL) CBC auto differential (07/09/2025 12:15 PM EDT) [facility] White Blood Count 16.8(H) 4.8 - 10.8 X10*3/uL [facility] Red Blood Count 4.72 4.60 - 5.80 X10*6/uL [facility] Hemoglobin 14.8 14.0 - 18.0 g/dl [facility] Hematocrit 42.9 42.0 - 52.0 % [facility] Mean Corpuscular Volume 90.9 80.0 - 98.0 fL [facility] Mean Corpuscular Hemoglobin 31.4 27.0 - 33.0 pg [facility] Mean Corpuscular HGB Conc 34.5 31.0 - 36.0 g/dl [facility] Red Cell Distribution Width 12.9 11.0 - 16.0 % [facility] Platelet Count 250 160 - 400 X10*3/uL [facility] Mean Platelet Volume 10.8 9.4 - 12.4 fL [facility] Neutrophils Percent Auto 18.4(L) 45 - 73 % [facility] Imm Gran Pct Auto 0.2 0.0 - 0.4 % [facility] Lymphocytes Percent Auto 76.7(H) 20 - 40 % [facility] Monocytes Percent Auto 3.8 2 - 11 % [facility] Eosinophils Percent Auto 0.4 0 - 4 % [facility] Basophils Percent Auto 0.5 0 - 2 % [facility] NRBC Pct Auto 0.0 0.0 - 0.2 /100WBC [facility] Neutrophils Absolute Auto 3.1 2.0 - 8.3 x10*3/uL [facility] Imm Gran Abs Auto 0.03 0.00 - 0.03 X10*3/uL [facility] Lymphocytes Absolute Auto 12.9(H) 1.2 - 4.9 X10*3/uL [facility] Monocytes Absolute Auto 0.6 0.1 - 1.2 X10*3/uL [facility] Eosinophils Absolute Auto 0.1 0.0 - 0.4 X10*3/uL [facility] Basophils Absolute Auto 0.1 0.0 - 0.2 X10*3/uL [facility] NRBC Abs Auto 0.000 0.0 - 0.012 X10*3/uL [facility] Blood Venous blood specimen / Unknown 07/09/2025 12:15 PM EDT 07/09/2025 1:38 PM EDT [facility] LAB BLOOD ORDERABLES Edited R esult - Final [facility] [address] [place] [address] [phone] * Lactate Dehydrogenase (LD) (07/09/2025 12:15 PM EDT) Lactate Dehydrogenase 217 118 - 273 U/L [facility] Blood Venous blood specimen / Unknown 07/09/2025 12:15 PM EDT 07/09/2025 1:35 PM EDT [facility] LAB BLOOD ORDERABLES Final Re sult Performing Organization Address City/[facility]/ZIP Co de Phone Number [facility] [address] [place] [address] [phone] * (ABNORMAL) Comprehensive Metabolic Panel (07/09/2025 12:15 PM EDT) Sodium 138 135 - 145 mmol/L [facility] Potassium 4.1 3.3 - 5.1 mmol/L [facility] Chloride 103 96 - 108 mmol/L [facility] Carbon Dioxide 26 22 - 29 mmol/L [facility] Anion Gap 13 12 - 20 [facility] Urea Nitrogen (BUN) 23(H) 9 - 16 mg/dL [facility] Creatinine, Serum 1.12 0.5 - 1.4 mg/dL [facility] Estimated Glomerular Filt Rate >60 [facility] Comment:Chronic Kidney Disea se: Estimated GFR < 60 mL/min/1.02x7Dtdaoh Kidney Disease: Estimated GFR < 15 mL/min/1.73m2 Glucose 94 60 - 115 mg/dL [facility] Calcium 9.4 8.4 - 10.2 mg/dL [facility] Bilirubin, Total 0.3 0.0 - 1.0 mg/dL [facility] Aspartate Amino Transferase 27 5 - 37 U/L [facility] Alanine Aminotransferase 14 0 - 40 U/L [facility] Total Protein 7.6 6.5 - 8.0 g/dL [facility] Albumin Level 4.3 3.5 - 5.0 g/dL [facility] Alkaline Phosphatase 77 39 - 117 U/L [facility] Blood Venous blood specimen / Unknown 07/09/2025 12:15 PM EDT 07/09/2025 1:35 PM EDT [facility] LAB BLOOD ORDERABLES Final Re sult Performing Organization Address City/[facility]/ZIP Co de Phone Number [facility] [address] [place] [phone] * HIV-1/2 Antigen and Antibodies, Fourth Generation, with Reflexes (08/07/2024 9:20 AM EDT) HIV AB/AG Nonreactive Nonreactive [facility] Comment:HIV-1 p24 Ag and/or HIV-1/HIV-2 Ab not detected.A test result that is nonreactive does not exclude thepossibility of exposure to or infection with HIV-1 and/orHIV-2. Nonreactive results in this assay for individualswith prior exposure to HIV-1 and/or HIV-2 may be due toantigen and antibody levels that are below the limit ofdetection of this assay.The TRUE linkswear HIV Ag/Ab Combo assay result andsupplemental assay results should be interpreted inconjunction with the patient's clinical presentation,history and other laboratory results. If the results areinconsistent with clinical evidence, additional testing issuggested to confirm the result. Blood Venous blood specimen / Unknown 08/07/2024 9:20 AM EDT 08/07/2024 11:17 AM EDT [facility] LAB BLOOD ORDERABLES Final Re sult [facility] [address] [place] [address] [phone] * (ABNORMAL) Lipid Panel, Standard (08/07/2024 9:20 AM EDT) Triglycerides 181(H) <150 mg/dL [facility] Comment:Desirable Triglyceri de: less than 150 mg/dLBorderline High Triglyceride 150-199 mg/dLHigh Triglyceride: 200-499 mg/dLVery High Triglyceride: greater than or equal to 5OO mg/dL Cholesterol 124 <200 mg/dL [facility] Comment:Desirable Cholestero l: less than 200 mg/dLBorderline High Cholesterol: 200-239 mg/dLHigh Cholesterol: greater than 239 mg/dL LDL Cholesterol Calculated 59 <100 mg/dL [facility] Comment:Desirable LDL: less than 100 mg/dLNear Optimal/Above Optimal LDL: 110- 129 mg/dLBorderline High LDL: 130-159 mg/dLHigh LDL: 160-189 mg/dLVery High LDL: greater than or equal to 190 mg/dL HDL Cholesterol 29(L) >40 mg/dL [facility] Comment:Desirable HDL: great er than 40 mg/dL Note: This HDL assay may give artificially low results in patients with liver disease. Blood Venous blood specimen / Unknown 08/07/2024 9:20 AM EDT 08/07/2024 11:17 AM EDT [facility] TRAVEL REGISTERED NURSE ICU LAB BLOOD ORDERABLES Final Re sult [facility] [address] [place] [address] [phone] from Last 3 Months or Most Recently Relevant to Health Maintenance Insurance [facility] C3 [facility] AD[place] Care Teams Aluminum Can Collector Relationship Specialty Start Date End Date Cristina Grubbs FNP [address] [place] [phone] PCP - General Family Medicine 06/17/24
--- OUTSIDE RECORDS SUMMARY | 2025-09-03 06:47 | XMS_ITS | Encounter Summary ---
Author Organization [employer] Address [address] [facility] [address] [place] [address] Care Team Providers Care Sales Account Representative Name Role Phone Romie [facility] Primary Care Provider [phone] Reason for Visit * Reason Comments Med Refill Encounter Details Date Type Department Care Team ([facility] Contact Info) Description 05/23/2025 Refill [facility] [address] [place], [place] [phone] [facility] [address] [place] [address] Social History Tobacco Use Types Packs/Day Years [...] with others, in a hotel, in a fpc, living outside on the street, on a [...] documented as of this encounter Care Teams Sales Account Representative Relationship Specialty Start Date End Date Cristina Grubbs FNP [address] [place] [phone] PCP - General Family Medicine 06/17/24 documented as of this encounter
--- OUTSIDE RECORDS SUMMARY | 2025-09-03 06:47 | XMS_ITS | Encounter Summary ---
Author Organization [employer] Address [address] [facility] [address] [place] [address] Care Team Providers Care Spa Technician Name Role Phone Romie Cristina CREMATORIUM OPERATOR Primary Care Provider Encounter Details Date Type Department Care Team (Late st Contact Info) Description 02/09/2025 Telephone [facility] [address] [place] [address] Ashwin Stout, AditiD Social History [...] documented as of this encounter Care Teams Spa Technician Relationship Specialty Start Date End Date Cristina Grubbs FNP [address] [place] [phone] PCP - General Family Medicine 06/17/24 documented as of this encounter
== END 2025-09-03 06:45 | disposition home or self-care (01) ==
LOC: HO.CT 06:44
PROVIDERS: PCP Registered Nurse; Visit Provider Registered Nurse
DX: R06.02 Shortness of breath (principal); R63.4 Abnormal weight loss
CPT/HCPCS: 71250

== ENCOUNTER → 2025-09-03 06:47 | Outpatient (BNV) | payer MEDICAID, SELFPAY | PROVIDERS: PCP Registered Nurse; Visit Provider Radiology Diagnostic Radiology | DX: J43.9 Emphysema, unspecified (principal); J84.89 Other specified interstitial pulmonary diseases; Z87.891 Personal history of nicotine dependence | CPT/HCPCS: 71250 ==